=== PATIENT | male | born 2000 | race Caucasian/White ===

== ENCOUNTER 2021-07-25 14:23 | Emergency (ER) | payer BC ==
[~2021-07-25] VITALS: Ht 172.7 cm; Wt 75.0 kg
[2021-07-25 15:12] VITALS: TEMP 100
[2021-07-25] MEDS ORDERED: WELLBUTRIN XL150 MG PO (15:16)
[2021-07-25] MEDS ORDERED: CELEXA 20MG20 MG/TAB PO (15:16)
[2021-07-25 16:05] LABS: BASO % 0.4 % (0.0-2.0); EOS # 0.1 K/mm3 (0.0-0.7); EOS % 0.5 % (0.0-4.0); GRAN % 87.7 % (42.2-75.2); HEMATOCRIT 42.8 % (42.0-52.0); HEMOGLOBIN 15.6 g/dl (13.5-18.0); LYMPH # 0.2 K/mm3 (1.2-3.4); LYMPH % 2.4 % (20.0-51.0); MEAN CELL VOLUME 86 fl (80.0-100.0); MEAN CORPUSCULAR HEMOGLOBIN 31 pg (27-31); MEAN CORPUSCULAR HGB CONC 36 g/dl (33.0-37.0); MEAN PLATELET VOLUME 8.9 fl (7.4-10.4); MONO # 0.8 K/mm3 (0.1-0.6); MONO % 8.6 % (1.7-9.3); PLATELET COUNT 156 K/mm3 (130-400); RED BLOOD COUNT 4.98 M/mm3 (4.20-5.60); REDCELL DISTRIBUTION WIDTH-CV 11.2 % (11.5-14.5)
[2021-07-25 16:24] LABS: ALBUMIN 4.6 gm/dL (3.5-5.0); CALCIUM 9.5 mg/dL (8.4-10.2); CREATININE, serum 1.28 mg/dL (0.72-1.25); POTASSIUM 3.6 mmol/L (3.5-4.5); TOTAL PROTEIN 7.3 gm/dL (6.2-8.1)
[2021-07-25 17:57] VITALS: BP 134/62; PULSE 135
== END 2021-07-25 18:04 | disposition home or self-care (01) ==
LOC: COL.ER 14:23
PROVIDERS: Physician Assistant
DX: U07.1 COVID-19 (principal); R00.0 Tachycardia, unspecified; F41.9 Anxiety disorder, unspecified; Z79.899 Other long term (current) drug therapy
CPT/HCPCS: J2060; J7030